=== PATIENT | female | born 1985 | race Caucasian/White ===

== ENCOUNTER 2017-05-16 17:29 | Emergency (ER) | payer BC, OTHER ==
[~2017-05-16] VITALS: Ht 165.1 cm; Wt 63.5 kg
[~2017-05-16 17:29] MED LIST: CLON1TAB PO; VILA10TA PO
[2017-05-16] MEDS ORDERED: IV NORMAL SALINE 1,000ML 1,000 ML IV SCH (17:34)
[2017-05-16] MEDS ORDERED: 0.9 % SODIUM CHLORIDE 10 ML DISP.SYRIN. IV PRN (17:45)
--- NOTE | 2017-05-16 17:48 | PHYS DOC ---
Past History Past Medical History: Other Additional Past Medical Histor: prior history of coarctation with surgical correction as an infant Past Surgical History: Other Smoking: Cigarettes, Less than 1pk/day Alcohol Use: Occasionally Drug Use: None Adult General Chief Complaint Chief Complaint: questionable seizure activity with nausea and vomiting [facility] Patient is a pleasant 31-year-old female with a history of coarctation of aorta with surgical correction. She presents today with sudden onset of question will seizure-like activity described as tonic-clonic jerking of the upper extremities lasting for last 10-12 minutes while driving [place] the [place] up to this ER. She's never had history of seizures before. There is no evidence of post ictal state or confusion when she came out of the seizure activity. She denies any headache, chest pain, focal neurologic deficit, change in vision, change in speech, medications or drug use. She just eaten Chinese food or to arrival. She presently is suffering from nausea and intense vomiting at this time. It is nonbilious nonbloody with no abdominal pain no diarrhea no fevers no chills no sick contact. She denies any trauma to her head, denies any neck stiffness or fever. She just eaten this Chinese food although she denies that there was probably tasting or seafood. Review of Systems Review of Systems Constitutional: Denies fever or chills [] Eyes: Denies change in visual acuity, redness, or eye pain [] HENT: Denies nasal congestion or sore throat [] Respiratory: Denies cough or shortness of breath [] Cardiovascular: No additional information not addressed in [facility] [] GI: No complains of abdominal pain. This nausea and vomiting with no diarrhea no dinner stool or mucus. : Denies dysuria or hematuria [] Musculoskeletal: Denies back pain or joint pain [] Integument: Denies rash or skin lesions [] Neurologic: Denies headache, focal weakness or sensory changes patient has had seizures or seizure-like activity prior to arrival. Endocrine: Denies polyuria or polydipsia [] Allergies Allergies Allergies Coded Allergies Type Severity Reaction Last Updated Verified No Known Drug Allergies 03/19/14 No Physical Exam Physical Exam She is obvious uncomfortable vomiting actively into a bucket. Patient is tachycardic and mildly hypertensive. There is no other evidence of toxidrome at this time. Constitutional: Well developed, well nourished, is no acute distress nontoxic in appearance actually is vomiting but able to answer questions without issue no postictal state. HENT: Normocephalic, atraumatic, bilateral external ears normal, oropharynx moist, no oral exudates, nose normal. [] Eyes: PERRLA, EOMI, conjunctiva normal, no discharge. [] Neck: Normal range of motion, no tenderness, supple, no stridor. [] Cardiovascular: Tachycardia noted no gross gallops or rubs noted Lungs.: sounds clear to auscultation [] Abdomen: Bowel sounds normal, soft, no tenderness, no masses, no pulsatile masses. [] Skin: Warm, dry, no erythema, no rash. [] Back: No tenderness, no CVA tenderness. [] Extremities: No tenderness, no cyanosis, no clubbing, ROM intact, no edema. [] Neurologic: Alert and oriented X 3, normal motor function, normal sensory function, no focal deficits noted. [] Psychologic: Affect normal, judgement normal, mood normal. [] Current Patient Data Lab Results Laboratory Tests Test 05/16/17 17:34 Glucose (Fingerstick) 130 mg/dL (70-99) H EKG EKG []EKG time is 5:41 PM 05/16/[address] Mandel heart rate of 108 normal sinus rhythm sinus tachycardia noted with a normal RI interval 1:30 QRS width is normal at 74 QTc is normal at 459. Patient is no asymmetry or T-wave changes consistent with acute coronary ischemia and no evidence of hyperkalemia. Radiology/Procedures Radiology/Procedures [] PATIENT: SUZY PELAYO ACCOUNT: [id number] : 1985 LOCATION: ER AGE: 31 SEX: F EXAM STATUS: REG ER ORD. PHYSICIAN: JUANI MANDEL MD REASON: ?? seizure activity PROCEDURE: CT HEAD WO CONTRAST EXAM: CT head without contrast HISTORY: 825417.001 Nausea, headache, anxiety today. No priors. COMPARISON: None. TECHNIQUE: Computed tomographic images of the head were obtained without contrast. PQRS compliance statement: One or more of the following individualized dose reduction techniques were utilized for this examination: 1. Automated exposure control 2. Adjustment of the mA and/or kV according to patient size 3. Use of iterative reconstruction technique FINDINGS: There is no acute intracranial process identified. Specifically, there are no intracranial blood products, extra-axial fluid collections, mass effect or midline shift. Ventricles and basilar cisterns are maintained. The visualized portions of the orbits, paranasal sinuses and mastoid air cells are unremarkable. No suspicious calvarial lesion is seen. IMPRESSION: No acute intracranial findings. Electronically signed by: Omer Lee MD (05/16/2017 6:23 PM) [facility] DICTATED AND SIGNED BY: OMER LEE MD DATE: 05/16/17 9909 CC: JUANI MANDEL MD; LEOPOLDO GILLESPIE DO; ROSARIO DAILY MD ~ Course & Med Decision Making Course & Med Decision Making Pertinent Labs and Imaging studies reviewed. (See chart for details) ration presents with question of seizure-like activity after eating Chinese food. There may been an issue with ill preparation of the food stuff there is no seafood consumption given and history doubt scrumboid. Does not present as toxidrome. She is not post ictal. Given her nausea and vomiting we'll ensure that she is not having issue with a electrolytes, and intracranial lesion or mass. She is given a prophylactic dose of Zofran and Ativan for anxiety. Care be turned over to coming physician. We discussed case I didn't interview the patient and let them know the change. [] Report received from Dr. Mandel at 1800 shift change, patient seen and examined chart reviewed. 31-year-old female otherwise healthy comes in emergency department with apparent new onset seizure. No incontinence or postictal behavior noted, patient and significant other. The evasive and questionable historians. Pertinent labs: White blood cells 15.5, d-dimer 0.66, potassium 3.4, BUNs 8, creatinine 1.2, lactic acid 13.9, urine drug screen positive for cocaine. Patient rechecked, she says she is feeling better. I discussed further workup for elevated d-dimer and observation admission. The patient expresses remorse for her choice to use cocaine earlier today and states she has learned her lesson. She is refusing any further evaluation or treatment at this point and requests discharge home. I discussed the risks and benefits of staying versus leaving, risks of leaving including loss of quality of life, or . Patient persistently wishes to leave see departure instructions. Dragon Disclaimer Dragon Disclaimer This chart was dictated in whole or in part using Voice Recognition software in a busy, high-work load, and often noisy Emergency Department environment. It may contain unintended and wholly unrecognized errors or omissions. Departure Departure: Impression: Primary Impression: Cocaine abuse Additional Impressions: Seizure Metabolic acidosis due to ingestion of drugs or chemicals Acute renal insufficiency Disposition: HOME, SELF-CARE Condition: IMPROVED Referrals: ROSARIO DAILY MD (PCP) Patient Instructions: Cocaine Abuse and Chemical Dependency, Metabolic Acidosis , Nonepileptic Seizures-Brief Additional Instructions: As discussed, you have requested no further evaluation or treatments and want to go home. Further evaluation including neurology consultation, inpatient observation, serial labs have been discussed with you and you have refused. Risks and benefits of staying vs leaving have been discussed with you and your questions have been answered. You may return for further evaluation at any time. Discontinue cocaine abuse, seek medical assistance if necessary. Aggressive hydration with gatorade, water. OTC tylenol as needed. Follow up with your doctor Friday for recheck. Return to ED with new or changing symptoms. Problem Qualifiers JUANI MANDEL MD May 16, 2017 17:48 LEOPOLDO GILLESPIE DO May 16, 2017 18:31
[2017-05-16 17:53] LABS: BASO # 0.1 x10^3/uL (0.0-0.2); BASO % 1 % (0-3); EOS # 0.1 x10^3/uL (0.0-0.7); EOS % 1 % (0-3); HEMATOCRIT 42.4 % (36.0-47.0); HEMOGLOBIN 14.1 g/dL (12.0-15.5); LYMPH # 4.2 x10^3/uL (1.0-4.8); LYMPH % 27 % (24-48); MEAN CORPUSCULAR HEMOGLOBIN 30 pg (25-35); MEAN CORPUSCULAR HGB CONC 33 g/dL (31-37); MEAN CORPUSCULAR VOLUME 89 fL (79-100); MONO # 1.3 x10^3/uL (0.0-1.1); MONO % 8 % (0-9); NEUT # 9.9 x10^3uL (1.8-7.7); NEUT % 64 % (31-73); PLATELET COUNT 370 x10^3/uL (140-400); RED BLOOD COUNT 4.78 x10^6/uL (3.50-5.40); RED CELL DISTRIBUTION WIDTH 13.2 % (11.5-14.5); WHITE BLOOD COUNT 15.5 x10^3/uL (4.0-11.0)
[2017-05-16] MEDS ORDERED: LORazepam 2 MG/ML VIAL IV ONE (18:00)
[2017-05-16] MEDS ORDERED: ONDANSETRON PF 4 MG/2 ML VIAL. IV ONE (18:00)
[2017-05-16 18:09] LABS: ALBUMIN 4.4 g/dL (3.4-5.0); ALBUMIN/GLOBULIN RATIO 1.1 (1.0-1.7); CALCIUM 9.1 mg/dL (8.5-10.1); CREATININE 1.2 mg/dL (0.6-1.0); GFR 51.7; MAGNESIUM 2.1 mg/dL (1.8-2.4); POTASSIUM 3.4 mmol/L (3.5-5.1); TOTAL BILIRUBIN 0.5 mg/dL (0.2-1.0); TOTAL PROTEIN 8.4 g/dL (6.4-8.2)
[2017-05-16 18:21] LABS: AMPHETAMINE/METHAMPHETAMINE NEG (NEG); BARBITURATES NEG (NEG); BENZODIAZEPINES NEG (NEG); CANNABINOIDS NEG (NEG); COCAINE POS (NEG); METHADONE NEG (NEG); OPIATES NEG (NEG); PHENCYCLIDINE NEG (NEG)
--- NOTE | 2017-05-16 18:26 | RAD ---
EXAM: CT head without contrast HISTORY: [id number] Nausea, headache, anxiety today. No priors. COMPARISON: None. TECHNIQUE: Computed tomographic images of the head were obtained without contrast. RS compliance statement: One or more of the following individualized dose reduction techniques were utilized for this examination: 1. Automated exposure control 2. Adjustment of the mA and/or kV according to patient size 3. Use of iterative reconstruction technique FINDINGS: There is no acute intracranial process identified. Specifically, there are no intracranial blood products, extra-axial fluid collections, mass effect or midline shift. Ventricles and basilar cisterns are maintained. The visualized portions of the orbits, paranasal sinuses and mastoid air cells are unremarkable. No suspicious calvarial lesion is seen. IMPRESSION: No acute intracranial findings. Electronically signed by: Yocasta Lee MD (05/16/2017 6:23 PM) [facility]
[2017-05-16 18:49] LABS: BACTERIA,URINE 0 /HPF (0-FEW); BILIRUBIN,URINE NEG (NEG); CLARITY,URINE HAZY; COLOR,URINE YELLOW; GLUCOSE,URINE NEG (NEG); NITRITE,URINE NEG (NEG); RBC,URINE RARE /HPF (0-2); SQUAMOUS EPITHELIAL CELL,UR FEW /LPF; UROBILINOGEN,URINE 0.2 mg/dL (0.2 mg/dL)
[2017-05-16 18:51] LABS: AMORPHOUS SEDIMENT,UR PRESENT /HPF
--- NOTE | 2017-05-16 19:19 | EKG ---
[address] [address] Test Date: 2017-05-16 Test Time: 17:41:48 Pat Name: SUZY PELAYO Department: Room: Gender: F [employer]ician: : 1985 Requested By: JUANI MANDEL Order Number: [id number] Reading MD: Measurements Intervals [place] Rate: 108 P: 74 IL: 130 QRS: 79 QRSD: 74 T: 69 QT: 340 QTc: 459 Interpretive Statements SINUS TACHYCARDIA QRS(T) CONTOUR ABNORMALITY CANNOT RULE OUT ANTEROSEPTAL MYOCARDIAL DAMAGE RI6.01 Unconfirmed report No previous ECG available for comparison
[2017-05-16 19:30] VITALS: BP 123/74
[2017-05-16 21:04] LABS: % BANDS 1 % (0-9); % EOS 1 % (0-5); % LYMPHS 25 % (24-48); % MONOS 10 % (0-10); % SEGS 63 % (35-66)
[2017-05-16 21:08] LABS: PLT ESTIMATE ADEQUATE (ADEQUATE)
== END 2017-05-16 19:30 | disposition home or self-care (01) ==
LOC: ER 17:29
DX: R56.9 Unspecified convulsions (principal); E87.2 Acidosis; N28.9 Disorder of kidney and ureter, unspecified; F14.10 Cocaine abuse, uncomplicated; F17.210 Nicotine dependence, cigarettes, uncomplicated
CPT/HCPCS: 36415; 70450; 80053; 80307; 81001; 81025; 82550; 82947; 83605; 83690; 83735; 83880; 84443; 85007; 85027; 85379; 93005; 96361; 96374; 96375; 99285; G0480; J2060; J2405; G0479; J7030